=== PATIENT | male | born 1980 | race American Indian/Alaskan Native ===

== ENCOUNTER 2017-05-06 00:44 | Emergency (ER) | payer MEDICAID, OTHER ==
[2017-05-06 00:45] VITALS: BMI 23.6
[2017-05-06 00:56] VITALS: BP 141/82; PULSE 84; RESP 18; TEMP 98.1; O2SAT 94
--- NOTE | 2017-05-06 01:08 | ED PDOC ---
Upper Extremity Pain/Injury Time Seen by Provider: 05/06/17 00:55 Chief Complaint (Nursing): Upper Extremity Problem/Injury Chief Complaint (Provider): right hand injury History Per: Patient History/Exam Limitations: no limitations Onset/Duration Of Symptoms: Days (2) Current Symptoms Are (Timing): Still Present Additional History Per: Patient Additional Complaint(s): 37 y/o male ambulates to ED for eval of right hand pain x 2 days. Patient states he slammed hand in car door. Pain radiates to wrist and forearm. Denies numbness/weakness right upper extremity, limitation of movement. Patient admits to drinking tonight. Past Medical History Reviewed: Historical Data, Nursing Documentation, Vital Signs Vital Signs: Last Vital Signs Temp 98.1 F 05/06/17 00:53 Pulse 84 05/06/17 00:53 Resp 18 05/06/17 00:53 BP 141/82 05/06/17 00:53 Pulse Ox 94 L 05/06/17 00:53 - Medical History PMH: Asthma, Depression, Diabetes, Gastritis, HTN, Pancreatitis Denies: Chronic Kidney Disease - Family History Family History: States: Unknown Family Hx - Immunization History Hx Tetanus Toxoid Vaccination: Yes (07/07/2014) Hx Influenza Vaccination: No Hx Pneumococcal Vaccination: Yes - Home Medications Home Medications: Ambulatory Orders Medication Instructions Recorded amLODIPine [Norvasc] 5 mg PO DAILY 02/15/16 Naproxen [Naprosyn] 500 mg PO Q12 PRN #20 tablet 05/06/17 - Allergies Allergies/Adverse Reactions: Allergies Allergy/AdvReac Type Severity Reaction Status Date / Time shellfish derived Allergy Severe ANAPHYLAXIS Verified 05/06/17 00:51 shrimp Allergy Severe ANAPHYLAXIS Verified 05/06/17 00:51 Review of Systems ROS Statement: Except As Marked, All Systems Reviewed And Found Negative Musculoskeletal: Positive for: Hand Pain (right) Physical Exam - Reviewed Nursing Documentation Reviewed: Yes Vital Signs Reviewed: Yes - Physical Exam Appears: Positive for: Well, Non-toxic, No Acute Distress Head Exam: Positive for: ATRAUMATIC, NORMAL INSPECTION, NORMOCEPHALIC Skin: Positive for: Normal Color Eye Exam: Positive for: Normal appearance ENT: Positive for: Normal ENT Inspection Cardiovascular/Chest: Positive for: Regular Rate, Rhythm Respiratory: Positive for: Normal Breath Sounds Extremity: Positive for: Normal ROM, Swelling (right hand, + subungual hematoma 5th digit (old appearing). FROM. Distal NV, motor intact) Neurologic/Psych: Positive for: Alert, Oriented - ECG O2 Sat by Pulse Oximetry: 94 - Other Rad xray right hand X-Ray: Viewed By Me X-Ray Interpretation: no acute findings xray right wrist X-Ray: Viewed By Me X-Ray Interpretation: no acute findings - Progress ED Course And Treament: xray, accucheck Patient educated on findings, discharged with rx naproxen. Advised RICE. Follow up PMD 2-3 days. Return to ED for worsening/concerning symptoms. Disposition - Clinical Impression Clinical Impression: Hand pain, right - Patient ED Disposition Is Patient to be Admitted: No Counseled Patient/Family Regarding: Studies Performed, Diagnosis, Need For Followup - Disposition Disposition: Routine/Home Disposition Time: 02:00 Condition: STABLE Prescriptions: Naproxen [Naprosyn] 500 mg PO Q12 PRN #20 tablet PRN Reason: Pain, Moderate (4-7) Instructions: Crush Injury (ED)
--- NOTE | 2017-05-06 14:40 | RAD ---
PROCEDURE: Right Hand Radiographs. HISTORY: trauma, pain COMPARISON: None. FINDINGS: BONES: Old healed fracture 2nd and 5th metacarpals. JOINTS: Normal. No osteoarthritic changes. SOFT TISSUES: Normal. OTHER FINDINGS: None. IMPRESSION: No acute findings related to/accounting for the clinical presentation. No preliminary report provided by emergency department personnel.
--- NOTE | 2017-05-06 14:43 | RAD ---
PROCEDURE: Right Wrist Radiographs. HISTORY: trauma, pain COMPARISON: May 06, 2017. FINDINGS: BONES: Normal. No fracture. JOINTS: Normal. No dislocation. SOFT TISSUES: Normal. OTHER FINDINGS: None. IMPRESSION: No acute findings related to/accounting for the clinical presentation.
== END 2017-05-06 05:23 | disposition home or self-care (01) ==
LOC: H.ER 00:44
DX: S69.91XA Unspecified injury of right wrist, hand and finger(s), initial encounter (principal); W22.8XXA Striking against or struck by other objects, initial encounter; Y92.89 Other specified places as the place of occurrence of the external cause; E11.9 Type 2 diabetes mellitus without complications; I10 Essential (primary) hypertension; K85.90 Acute pancreatitis without necrosis or infection, unspecified

== ENCOUNTER 2017-06-10 19:50 | Observation (INO) | payer MEDICAID, OTHER ==
[2017-06-10 19:50] VITALS: BMI 21.7
[2017-06-10] MEDS ORDERED: Sodium Chloride 0.9% 1,000 ML IV STA (20:39)
[2017-06-10 20:52] LABS: BASO # 0.2 K/uL (0.0-0.2); BASO % 3.8 % (0.0-2.0); EOS # 0.1 K/uL (0.0-0.7); EOS % 1.1 % (0.0-4.0); HEMOGLOBIN 12.6 g/dL (12.0-18.0); LYMPH # 2.3 K/uL (1.0-4.3); MEAN CORPUSCULAR HEMOGLOBIN 29.7 pg (27.0-31.0); MEAN CORPUSCULAR HGB CONC 33.3 g/dL (33.0-37.0); MEAN PLATELET VOLUME 6.5 fl (7.2-11.7); MONO # 0.3 K/uL (0.0-0.8); MONO % 7.3 % (0.0-10.0); NEUT # 1.8 K/uL (1.8-7.0); NEUT % 38.8 % (50.0-75.0); NRBC % 0.1 % (0.0-0.0); PLATELET COUNT 345 K/uL (130-400); RBC 4.24 Mil/uL (4.40-5.90); RED CELL DISTRIBUTION WIDTH 15.4 % (11.5-14.5); WHITE BLOOD COUNT 4.8 K/uL (4.8-10.8)
[2017-06-10 20:54] LABS: MEAN CELL VOLUME 89.3 fl (80.0-94.0)
[2017-06-10 21:01] LABS: ALB/GLOB RATIO 1.4 (1.0-2.1); ALBUMIN 4.3 g/dL (3.5-5.0); ALT/SGPT 54 U/L (21-72); AST/SGOT 116 U/L (17-59); BLOOD UREA NITROGEN 9 mg/dl (9-20); CALCIUM 8.4 mg/dL (8.4-10.2); GFR AFRICAN-AMERICAN > 60; GFR NON-AFRICAN AMERICAN > 60; LIPASE 299 U/L (23-300)
--- NOTE | 2017-06-10 21:01 | ED PDOC ---
HPI: Abdomen Time Seen by Provider: 06/10/17 20:01 Chief Complaint (Nursing): Abdominal Pain Chief Complaint (Provider): Abdominal Pain History Per: Patient History/Exam Limitations: no limitations Onset/Duration Of Symptoms: Days (x1 day) Outside of [place] travel?: No Current Symptoms Are (Timing): Still Present Location Of Pain/Discomfort: Epigastric Associated Symptoms: denies: Fever, Chills, Nausea, Vomiting, Diarrhea, Chest Pain, Constipation Additional Complaint(s): Lee Lambert, a 37 year old male, with a past medical history of alcohol abuse, substance abuse and pancreatitis presents to the ED complaining of abdominal pain x1 day. He reports that the pain is localized to the epigastric area and it is non radiating. The patient states that his pain is due to his "pancreas". Patient admits to alcohol use and states he has drank 10 beers.When patient was asked if he took medications to relieve his pain he stated "he continues to drink alcohol." Denies fever, chills, vomiting, diarrhea , cough, chest pain, shortness of breath, constipation. Past Medical History Reviewed: Historical Data, Nursing Documentation, Vital Signs Vital Signs: Last Vital Signs Temp 98.2 F 06/10/17 19:53 Pulse 98 H 06/10/17 19:53 Resp 18 06/10/17 19:53 BP 139/92 H 06/10/17 19:53 Pulse Ox 96 06/11/17 05:38 - Medical History PMH: Asthma, Depression, Diabetes, Gastritis, HTN, Pancreatitis Denies: Chronic Kidney Disease Other PMH: Alcohol Abuse, Substance Abuse. - Surgical History Surgical History: No Surg Hx - Family History Family History: States: Unknown Family Hx - Social History Current smoker - smoking cessation education provided: Yes (smokes cigarrettes) Alcohol: > 2 Drinks/Day (Drinks daily) Drugs: Denies - Immunization History Hx Tetanus Toxoid Vaccination: Yes (07/07/2014) Hx Influenza Vaccination: No Hx Pneumococcal Vaccination: No - Home Medications Home Medications: Ambulatory Orders Medication Instructions Recorded No Known Home Med 05/29/17 - Allergies Allergies/Adverse Reactions: Allergies Allergy/AdvReac Type Severity Reaction Status Date / Time shellfish derived Allergy Severe ANAPHYLAXIS Verified 05/29/17 17:14 shrimp Allergy Severe ANAPHYLAXIS Verified 05/29/17 17:14 Review of Systems ROS Statement: Except As Marked, All Systems Reviewed And Found Negative Constitutional: Negative for: Fever, Chills Cardiovascular: Negative for: Chest Pain Respiratory: Negative for: Cough, Shortness of Breath Gastrointestinal: Positive for: Abdominal Pain (Epigastric pain). Negative for : Vomiting, Diarrhea, Constipation Physical Exam - Reviewed Nursing Documentation Reviewed: Yes Vital Signs Reviewed: Yes - Physical Exam Appears: Positive for: Non-toxic, No Acute Distress Head Exam: Positive for: ATRAUMATIC, NORMAL INSPECTION, NORMOCEPHALIC Skin: Positive for: Normal Color, Warm, Dry Eye Exam: Positive for: Normal appearance, EOMI, PERRL ENT: Positive for: Normal ENT Inspection Neck: Positive for: Normal, Painless ROM, Supple Cardiovascular/Chest: Positive for: Regular Rate, Rhythm, Chest Non Tender. Negative for: Tachycardia Respiratory: Positive for: Normal Breath Sounds. Negative for: Rhonchi, Wheezing, Respiratory Distress Gastrointestinal/Abdominal: Positive for: Bowel Sounds, Soft, Tenderness (Mild epigastric tenderness). Negative for: Mass, Guarding, Rebound Back: Positive for: Normal Inspection. Negative for: L CVA Tenderness, R CVA Tenderness Extremity: Positive for: Normal ROM. Negative for: Tenderness, Pedal Edema, Deformity, Swelling Neurologic/Psych: Positive for: Alert, Oriented, Gait - Laboratory Results Result Diagrams: 06/10/17 20:44 06/10/17 20:44 - ECG O2 Sat by Pulse Oximetry: 96 (RA) Pulse Ox Interpretation: Normal Medical Decision Making Medical Decision Makin Initial Impression: 37 year old male presenting with abdominal pain in setting of alcohol abuse and pancreatitis Initial Plan: * EKG * Alcohol Serum * CMP * Drug Screen * Lipase * Udip * CBC * NS 1000mls IV 1000mls/hr * Pepcid 20mg IV * Urinalysis * Reevaluation Scribe Attestation Documented by Xochitl Steel acting as a scribe for Talha Pandya MD. Provider Attestation All medical record entries made by the Scribe were at my direction and personally dictated by me. I have reviewed the chart and agree that the record accurately reflects my personal performance of the history, physical exam, medical decision making, and the department course for this patient. I have also personally directed, reviewed, and agree with the discharge instructions and disposition. ED OBSERVATION Date of observation admission: 06/10/17 Time of observation admission: 20:37 - Observation admission statement Patient is being placed in observation because:: intoxication - Goals of Observation Goals of observation are:: clinical sobriety - Progress Note Progress Note: 06/10/17 20:37 Patient is pending clinical sobriety. Vitals are stable, and patient is resting comfortably. 06/10/17 22:00 Vitals are stable, and patient is resting comfortably. 06/10/17 23:30 Vitals are stable, and patient is resting comfortably. 06/11/17 01:00 Vitals are stable, and patient is resting comfortably. 06/11/17 02:32 Vitals are stable, and patient is resting comfortably. 06/11/17 04:00 Vitals are stable, and patient is resting comfortably. 06/11/17 05:38 Vitals are stable, and patient is resting comfortably. 06/11/17 06:18 Patient is awake, alert, and orientedx3, with clear speech and steady gait. Patient is stale for discharge home. Clinical Impression: Alcohol Intoxication/Abdominal Pain Disposition - Clinical Impression Clinical Impression: Abdominal pain, Alcohol intoxication - Patient ED Disposition Is Patient to be Admitted: No - Disposition Disposition: Routine/Home Disposition Time: 06:18 Condition: STABLE
[2017-06-10 21:44] LABS: ANISOCYTOSIS SLIGHT; BASOPHIL 4 % (0-2); EOSINOPHIL 1 % (0-7); LYMPHOCYTE 44 % (20-50); MONOCYTE 9 % (0-10); NEUTROPHIL 40 % (42-75); PLATELET ESTIMATE NORMAL (NORMAL); REACTIVE LYMPHOCYTES 2 % (0-0); TOTAL CELLS COUNTED 100
[2017-06-10 21:45] LABS: GIANT PLATELETS PRESENT; LARGE PLATELETS PRESENT
[2017-06-11 02:31] LABS: URINE BILIRUBIN NEGATIVE (NEGATIVE); URINE BLOOD NEGATIVE (NEGATIVE); URINE CLARITY CLEAR (Clear); URINE COLOR YELLOW (YELLOW); URINE GLUCOSE (UA) NEG (Normal); URINE LEUKOCYTE ESTERASE NEG Leu/uL (Negative); URINE NITRATE NEGATIVE (NEGATIVE); URINE PROTEIN 30 mg/dL (NEGATIVE); URINE UROBILINOGEN 0.2-1.0 mg/dL (0.2-1.0)
[2017-06-11 02:43] LABS: BARBITURATES, UR NEGATIVE (NEGATIVE); BENZODIAZEPINES, UR NEGATIVE (NEGATIVE); OPIATES, UR NEGATIVE (NEGATIVE); PHENCYCLIDINE, UR POSITIVE (NEGATIVE)
[2017-06-11 06:24] VITALS: BP 130/68; PULSE 86; RESP 16; TEMP 98.4; O2SAT 98
--- NOTE | 2017-06-11 08:03 | CARD ---
APPROVED REPORT EKG Measurement Heart [id number] <Conclusion> Normal sinus rhythm T wave abnormality, ?? due to LVH Prolonged QT Abnormal ECG
== END 2017-06-11 06:24 | disposition home or self-care (01) ==
LOC: H.ER 19:50 → H.EROBSV 20:37
PROVIDERS: ADMIT Emergency Medicine; ATTEND Emergency Medicine
DX: R10.13 Epigastric pain (principal); F10.129 Alcohol abuse with intoxication, unspecified; E11.9 Type 2 diabetes mellitus without complications; I10 Essential (primary) hypertension; J45.909 Unspecified asthma, uncomplicated; K85.90 Acute pancreatitis without necrosis or infection, unspecified; F17.210 Nicotine dependence, cigarettes, uncomplicated

== ENCOUNTER 2018-03-30 17:50 | Emergency (ER) | payer MEDICAID, OTHER ==
[2018-03-30 17:50] VITALS: BMI 23.0
--- NOTE | 2018-03-30 19:36 | ED PDOC ---
HPI: Psych/Substance Abuse Time Seen by Provider: 03/30/18 18:01 Chief Complaint (Nursing): Alcohol Ingestion Chief Complaint (Provider): Alcohol Ingestion History Per: Patient History/Exam Limitations: no limitations Modifying Factor(s): Alcohol Additional Complaint(s): 38 y/o male is brought to the ED by EMS for alcohol intoxication. Patient admits to drinking alcohol. Patient has a steady gait going into the bathroom. Denies any further medical complaints. PMD: none Past Medical History Reviewed: Historical Data, Nursing Documentation, Vital Signs Vital Signs: Last Vital Signs Temp 97.8 F 03/30/18 17:53 Pulse 86 03/30/18 18:24 Resp 12 03/30/18 18:24 BP 151/98 H 03/30/18 17:53 Pulse Ox 99 03/30/18 18:24 - Medical History PMH: Asthma, Depression, Diabetes, Gastritis, HTN, Pancreatitis, Seizures Denies: Chronic Kidney Disease - Surgical History Surgical History: No Surg Hx - Family History Family History: States: Unknown Family Hx - Social History Current smoker - smoking cessation education provided: No (Never Smoked) Alcohol: > 2 Drinks/Day Drugs: Denies - Immunization History Hx Tetanus Toxoid Vaccination: Yes (07/07/2014) Hx Influenza Vaccination: No Hx Pneumococcal Vaccination: No - Home Medications Home Medications: Ambulatory Orders Medication Instructions Recorded Folic Acid 1 mg PO DAILY #30 tab 02/24/18 Multivitamins [Hexavitamin] 1 tab PO DAILY #30 tab 02/24/18 Thiamine [Vitamin B1 Tab] 100 mg PO DAILY #60 tab 02/24/18 amLODIPine [Norvasc] 10 mg PO DAILY #30 tab 02/24/18 levETIRAcetam [Keppra] 500 mg PO BID #60 tab 02/24/18 Nutritional Supplement [Ensure] 113 gm PO TID 30 Days pudding 02/25/18 - Allergies Allergies/Adverse Reactions: Allergies Allergy/AdvReac Type Severity Reaction Status Date / Time shellfish derived Allergy Severe ANAPHYLAXIS Verified 03/30/18 17:52 shrimp Allergy Severe ANAPHYLAXIS Verified 03/30/18 17:52 Review of Systems ROS Statement: Except As Marked, All Systems Reviewed And Found Negative (As per HPI, otherwise negative) Psych: Positive for: Other (Alcohol intoxication) Physical Exam - Reviewed Nursing Documentation Reviewed: Yes Vital Signs Reviewed: Yes - Physical Exam Appears: Positive for: No Acute Distress Head Exam: Positive for: ATRAUMATIC, NORMAL INSPECTION, NORMOCEPHALIC Skin: Positive for: Normal Color, Warm, Dry Eye Exam: Positive for: EOMI, Normal appearance, PERRL ENT: Positive for: Normal ENT Inspection Neck: Positive for: Normal, Painless ROM Cardiovascular/Chest: Positive for: Regular Rate, Rhythm. Negative for: Murmur Respiratory: Positive for: Normal Breath Sounds. Negative for: Accessory Muscle Use, Respiratory Distress Gastrointestinal/Abdominal: Positive for: Normal Exam, Soft. Negative for: Tenderness Back: Positive for: Normal Inspection Extremity: Positive for: Normal ROM. Negative for: Deformity Neurologic/Psych: Positive for: Alert, telephone maintenance mechanic II-XII, Oriented (x3), Gait (steady gait). Negative for: Motor/Sensory Deficits - ECG O2 Sat by Pulse Oximetry: 99 (RA) Pulse Ox Interpretation: Normal Medical Decision Making Medical Decision Making: Time: 18:04 Initial Impression: alcohol intoxication Plan: Alcohol serum Glucose, blood, POC Reevaluation Scribe Attestation: Documented by Oren Lazo acting as a scribe for Ellyn Toney MD. Scribe Attestation: All medical record entries made by the Scribe were at my direction and personally dictated by me. I have reviewed the chart and agree that the record accurately reflects my personal performance of the history, physical exam, medical decision making, and the department course for this patient. I have also personally directed, reviewed, and agree with the discharge instructions and disposition. Disposition - Disposition
[2018-03-30 21:55] VITALS: RESP 16
--- NOTE | 2018-03-31 00:01 | ED PDOC ---
- ECG O2 Sat by Pulse Oximetry: 98 (RA) Pulse Ox Interpretation: Normal Medical Decision Making Medical Decision Making: Time: Patient is transferred from Dr. Toney's Care to myself pending sobriety and reevaluation. Time: 05 Patient is sober, alert, oriented x3, steady gait and stable for discharge. Scribe Attestation: Documented by Pat Gardner, acting as a scribe for Talha Pandya MD. Provider Scribe Attestation: All medical record entries made by the Scribe were at my direction and personally dictated by me. I have reviewed the chart and agree that the record accurately reflects my personal performance of the history, physical exam, medical decision making, and the department course for this patient. I have also personally directed, reviewed, and agree with the discharge instructions and disposition. Disposition - Clinical Impression Clinical Impression: Alcohol abuse with intoxication - POA Present On Arrival: None - Disposition Disposition: Routine/Home Disposition Time: 05:55 Condition: STABLE Instructions: Effects of Alcohol on Your Health Forms: [employer] (Congolese)
[2018-03-31 04:21] VITALS: BP 116/70; PULSE 79; TEMP 97.9
[2018-03-31 05:56] VITALS: O2SAT 98
== END 2018-03-31 06:00 | disposition home or self-care (01) ==
LOC: H.ER 17:50
DX: F10.129 Alcohol abuse with intoxication, unspecified (principal); E11.9 Type 2 diabetes mellitus without complications; F32.9 Major depressive disorder, single episode, unspecified; I10 Essential (primary) hypertension; J45.909 Unspecified asthma, uncomplicated; K85.90 Acute pancreatitis without necrosis or infection, unspecified

== ENCOUNTER 2019-03-05 22:56 | Emergency (ER) | payer MEDICAID, OTHER ==
[2019-03-05 22:57] VITALS: BMI 21.4
--- NOTE | 2019-03-06 02:24 | ED PDOC ---
HPI: Psych/Substance Abuse Time Seen by Provider: 03/06/19 01:55 Chief Complaint (Nursing): Alcohol Ingestion Chief Complaint (Provider): Alcohol Ingestion History Per: Patient History/Exam Limitations: no limitations Current Symptoms Are (Timing): Still Present Suicide/Self Injury Attempted (Context): None Modifying Factor(s): Alcohol Additional Complaint(s): 38 year old male with a history of HTN, seizures, depression and pancreatitis, well known to the ED for multiple visits, presents to the ED via EMS for public intoxication. Patient was found sleeping outside. He offers no complaints. PMD: none provided Past Medical History Reviewed: Historical Data Primary Care Provider: Geovanna Mayfield - Medical History PMH: Asthma, Depression, Diabetes, Gastritis, HTN, Pancreatitis, Seizures Denies: Chronic Kidney Disease - Surgical History Surgical History: No Surg Hx - Family History Family History: States: Unknown Family Hx - Social History Alcohol: > 2 Drinks/Day - Immunization History Hx Tetanus Toxoid Vaccination: Yes (07/07/2014) Hx Influenza Vaccination: No Hx Pneumococcal Vaccination: No - Home Medications Home Medications: Ambulatory Orders Medication Instructions Recorded Folic Acid 1 mg PO DAILY #30 tab 02/24/18 Thiamine [Vitamin B1 Tab] 100 mg PO DAILY #60 tab 02/24/18 amLODIPine [Norvasc] 10 mg PO DAILY #30 tab 02/24/18 levETIRAcetam [Keppra] 500 mg PO BID #60 tab 02/24/18 Famotidine [Pepcid] 20 mg PO BID PRN #15 tab 11/11/18 Ondansetron ODT [Zofran ODT] 1 odt PO BID PRN #15 odt 11/11/18 Levetiracetam [Keppra] 500 mg PO BID #20 tablet 02/17/19 - Allergies Allergies/Adverse Reactions: Allergies Allergy/AdvReac Type Severity Reaction Status Date / Time shellfish derived Allergy Severe ANAPHYLAXIS Verified 03/05/19 23:52 shrimp Allergy Severe ANAPHYLAXIS Verified 03/05/19 23:52 Review of Systems ROS Statement: Except As Marked, All Systems Reviewed And Found Negative Physical Exam - Reviewed Nursing Documentation Reviewed: Yes Vital Signs Reviewed: Yes - Physical Exam Appears: Positive for: No Acute Distress Head Exam: Positive for: ATRAUMATIC, NORMAL INSPECTION, NORMOCEPHALIC Skin: Positive for: Normal Color, Warm, Dry Eye Exam: Positive for: EOMI, Normal appearance, PERRL Neck: Positive for: Normal, Painless ROM, Supple Cardiovascular/Chest: Positive for: Regular Rate, Rhythm. Negative for: Murmur Respiratory: Positive for: Normal Breath Sounds. Negative for: Respiratory Distress Extremity: Positive for: Normal ROM (x 4). Negative for: Deformity Neurological/Psych: Positive for: Awake, Alert, Normal Tone, Oriented. Negative for: Motor/Sensory Deficits Medical Decision Making Medical Decision Makin:59 Impression: alcohol intoxication Initial Plan: --Accucheck --Alcohol serum 06:10 Patient is ambulating with steady gait and clear speech. He is clinically sober for discharge. Scribe Attestation: Documented by Namrata Mosley, acting as a scribe Dee Pandya MD Provider Scribe Attestation: All medical record entries made by the Scribe were at my direction and personally dictated by me. I have reviewed the chart and agree that the record accurately reflects my personal performance of the history, physical exam, medical decision making, and the department course for this patient. I have also personally directed, reviewed, and agree with the discharge instructions and disposition Disposition - Clinical Impression Clinical Impression: Alcohol abuse with intoxication - Patient ED Disposition Is Patient to be Admitted: No - Disposition Disposition: Routine/Home Disposition Time: 06:10 Condition: STABLE Instructions: Alcohol Abuse and Alcoholism (DC) Forms: [employer] (Italian)
[2019-03-06 04:27] VITALS: RESP 16
[2019-03-06 06:16] VITALS: BP 114/78; PULSE 78; TEMP 98.2; O2SAT 95
== END 2019-03-06 06:10 | disposition home or self-care (01) ==
LOC: H.ER 22:56
DX: F10.129 Alcohol abuse with intoxication, unspecified (principal); I10 Essential (primary) hypertension; E11.9 Type 2 diabetes mellitus without complications; J45.909 Unspecified asthma, uncomplicated; Z86.59 Personal history of other mental and behavioral disorders; Y90.8 Blood alcohol level of 240 mg/100 ml or more; R56.9 Unspecified convulsions